=== PATIENT | female | born 1945 | race African-American/Black ===

== ENCOUNTER 2020-12-01 21:45 | Observation (INO) ==
[2020-12-01] MEDS ORDERED: SODIUM CHLORIDE 0.9% 500 ML IV STA (22:16)
[2020-12-01 23:07] LABS: Basophils % 0.2 % (0.0-0.8); Eosinophils % 0.5 % (0.00-10.9); Hemoglobin 10.5 GM/DL (12.0-16.0); Immature Granulocytes % 0.5 %; Immature Granulocytes Absolute 0.03 #; Lymphocytes # 1.3 10*3/uL (1.4-4.0); Lymphocytes % 20.1 % (21.3-54.2); Mean Corpuscular HGB Conc 30.9 GM/DL (32-36); Mean Corpuscular Volume 96.6 FL (87-102); Monocytes % 9.6 % (1.7-12.7); Neutrophils % 69.1 % (38.7-73.9); Platelet Count 99 T/CUMM (130-400); Red Blood Count 3.52 MC/CUMM (3.8-5.5); White Blood Count 6.4 T/CUMM (4-12)
[2020-12-01 23:23] LABS: INR 1.1; PT Patient Result 12.4 SECS (9.8-11.9)
[2020-12-01 23:29] LABS: Bilirubin,Urine Negative (Negative); Blood, Urine Negative (Negative); Glucose,Urine (UA) 150 mg/dL (Negative); Ketones,Urine Negative (Negative); Mucus,Urine Occasional /LPF (Occasional); Nitrite,Urine Negative (Negative); Protein,Urine 30 MG/DL; RBC,Urine 4 /HPF (0-4); Squamous Epithelial Cell,Urine Occasional /HPF (0-10); Urine Appearance CLEAR (Clear); Urine Color Yellow (Yellow); Urine Specific Gravity 1.015 (1.001-1.035); Urine Urobilinogen < 2.0 EU/DL (0.2-1.0); WBC,Urine 4 /HPF (0-6)
[2020-12-01 23:32] LABS: Alanine Aminotransferase 13 U/L (13-56); Albumin 3.6 G/DL (3.4-5.0); Alkaline Phosphatase 75 U/L (45-117); Aspartate Amino Transferase 69 U/L (0-37); Bilirubin,Total < 0.39 MG/DL (0.2-1.0); Blood Urea Nitrogen 19 MG/DL (7-18); Calcium 9.6 MG/DL (8.5-10.1); Carbon Dioxide 25 MMOL/L (21-32); Estimated Glom Filtration Rate 56 ML/MIN; Glucose 180 MG/DL (74-106); Potassium 4.6 MMOL/L (3.5-5.1); Sodium 136 MMOL/L (136-145); Total Protein 7.7 G/DL (6.4-8.2)
[2020-12-02] MEDS ORDERED: ASPIRIN 325 MG TABLET PO STA (00:04)
[2020-12-02] MEDS ORDERED: DEXTROSE 50% 25 GM/50 ML VIAL IV PRN (00:05)
[2020-12-02] MEDS ORDERED: ACETAMINOPHEN 325 MG TABLET PO PRN (00:05)
[2020-12-02] MEDS ORDERED: ONDANSETRON 4 MG/2 ML VIAL IV PRN (00:05)
[2020-12-02] MEDS ORDERED: GLUCAGON 1 MG VIAL IM PRN (00:05)
[2020-12-02] MEDS ORDERED: SODIUM CHLORIDE 0.9% 1,000 ML IV SCH (00:30)
[2020-12-02] MEDS ORDERED: ENOXAPARIN 40 MG/0.4 ML SYRINGE SUBCUT SCH (07:00)
[2020-12-02 07:05] LABS: Basophils % 0.3 % (0.0-0.8); Eosinophils # 0.1 10*3/uL (0.0-0.87); Eosinophils % 0.8 % (0.00-10.9); Hematocrit 32.2 VOL% (35.7-47.0); Hemoglobin 9.7 GM/DL (12.0-16.0); Immature Granulocytes % 0.3 %; Immature Granulocytes Absolute 0.02 #; Lymphocytes # 1.6 10*3/uL (1.4-4.0); Lymphocytes % 26.3 % (21.3-54.2); Mean Corpuscular HGB Conc 30.1 GM/DL (32-36); Mean Corpuscular Volume 96.1 FL (87-102); Mean Platelet Volume 14.4 FL (9.6-12.0); Monocytes % 10.7 % (1.7-12.7); Neutrophils % 61.6 % (38.7-73.9); Platelet Count 100 T/CUMM (130-400); Red Blood Count 3.35 MC/CUMM (3.8-5.5); Red Cell Distribution Width 15.9 % (9.3-17.3)
[2020-12-02 07:21] LABS: Hypochromasia 1+; Microcytosis 1+
[2020-12-02 07:24] LABS: Albumin 3.3 G/DL (3.4-5.0); Bilirubin,Total 0.9 MG/DL (0.2-1.0); Calcium 9.3 MG/DL (8.5-10.1); Osmolality,Calculated 283.3 MOS/KG (273-304); Potassium 4.9 MMOL/L (3.5-5.1); Total Protein 6.9 G/DL (6.4-8.2)
[2020-12-02 07:26] LABS: Risk Ratio 1.97; VLDL CHOLESTEROL 10.4 MG/DL
[2020-12-02] MEDS: INSULIN REGULAR 100 UNIT/ML SUBCUT SCH ×2 (08:57→12:32)
[2020-12-02] MEDS ORDERED: FERROUS SULFATE 325 MG TABLET PO SCH (09:00)
[2020-12-02] MEDS ORDERED: SACUBITRIL/VALSARTAN 49-51 MG TABLET PO SCH (09:00)
[2020-12-02] MEDS ORDERED: carvediloL 12.5 MG TABLET PO SCH (09:00)
[2020-12-02] MEDS ORDERED: GABAPENTIN 300 MG CAPSULE PO SCH (09:00)
[2020-12-02] MEDS ORDERED: MAGNESIUM CHLORIDE 64 MG TABLET PO SCH (09:00)
[2020-12-02] MEDS ORDERED: ATORVASTATIN 10 MG TABLET PO SCH (09:00)
[2020-12-02] MEDS ORDERED: allopurinoL 100 MG TABLET PO SCH (09:00)
[2020-12-02] MEDS ORDERED: ASPIRIN 325 MG TABLET PO SCH (09:00)
[2020-12-02 11:38] VITALS: BP 143/73
== END 2020-12-02 14:27 | disposition home or self-care (01) ==
LOC: N.ED 21:45 → N.EDINP 21:45 → N.5E 12-02 01:16
PROVIDERS: ADMIT Emergency Medicine; ATTEND Emergency Medicine

== ENCOUNTER 2021-12-31 10:59 | Inpatient (IN) ==
[2021-12-31 13:21] LABS: Basophils % 0.2 % (0.0-0.8); Hematocrit 35.4 VOL% (35.7-47.0); Hemoglobin 11.4 GM/DL (12.0-16.0); Immature Granulocytes % 0.6 %; Immature Granulocytes Absolute 0.07 #; Lymphocytes # 1.1 10*3/uL (1.4-4.0); Lymphocytes % 9.3 % (21.3-54.2); Mean Corpuscular HGB Conc 32.2 GM/DL (32-36); Mean Corpuscular Volume 92.2 FL (87-102); Mean Platelet Volume 14.3 FL (9.6-12.0); Monocytes # 1.6 10*3/uL (0.11-0.8); Monocytes % 13.6 % (1.7-12.7); Neutrophils % 76.3 % (38.7-73.9); Platelet Count 90 T/CUMM (130-400); Red Blood Count 3.84 MC/CUMM (3.8-5.5); Red Cell Distribution Width 14.7 % (9.3-17.3)
[2021-12-31 13:30] LABS: INR 1.1; PT Patient Result 12.2 SECS (10.5-12.0); Partial Thromboplastin Time 28.5 SECS (23.8-32.1)
[2021-12-31 13:32] LABS: Ammonia < 10 UMOL/L (11-32)
[2021-12-31 13:41] LABS: Platelet Estimate Decreased
[2021-12-31 14:10] LABS: Bilirubin,Total 1.2 MG/DL (0.20-1.00); Calcium 8.9 MG/DL (8.5-10.1); Osmolality,Calculated 275.8 MOS/KG (273-304); Potassium 4.6 MMOL/L (3.5-5.1); Total Protein 7.4 G/DL (6.4-8.2)
[2021-12-31 14:55] LABS: Granular Casts,Urine 3 /LPF (0-1); Mucus,Urine Occasional /LPF (Occasional); RBC,Urine 2 /HPF (0-4); Squamous Epithelial Cell,Urine Occasional /HPF (0-10)
[2021-12-31 14:56] LABS: Urine Appearance Clear (Clear); Urine Color Yellow (Yellow)
[2021-12-31 14:57] LABS: Bilirubin,Urine Small mg/dL (Negative); Blood, Urine Moderate mg/dL (Negative); Glucose,Urine (UA) Negative (Negative); Ketones,Urine Trace mg/dL (Negative); Nitrite,Urine Negative (Negative); Protein,Urine >=300 mg/dL (Negative); Urine Specific Gravity >= 1.030 (1.001-1.035)
[2021-12-31] MEDS ORDERED: SODIUM CHLORIDE 0.9% 1,000 ML IV STA (15:01)
[2021-12-31] MEDS ORDERED: GLUCAGON 1 MG VIAL IM PRN (15:18)
[2021-12-31 15:34] LABS: Lactic Acid 1.9 MMOL/L (0.4-2.0)
[2021-12-31] MEDS ORDERED: BISACODYL 5 MG TABLET PO PRN (15:38)
[2021-12-31] MEDS ORDERED: ONDANSETRON 4 MG/2 ML VIAL IV PRN (15:38)
[2021-12-31] MEDS ORDERED: DEXTROSE 10% 250 ML BAG IV PRN (15:54)
[2021-12-31 17:07] LABS: Hepatitis B Surface Ag Quant < 0.10 Index; Hepatitis B Surface Ag Result Non-Reactive (NonReactive); Hepatitis C Virus Ab Quant 0.05 Index; Hepatitis C Virus Ab Result Non-Reactive (NonReactive)
[2021-12-31] MEDS: SODIUM CHLORIDE 0.9% 1,000 ML IV SCH (18:04)
[2021-12-31] MEDS: INSULIN LISPRO 100 UNIT/ML SUBCUT SCH ×2 (18:04→20:57)
[2021-12-31] MEDS: MAGNESIUM CHLORIDE 64 MG TABLET PO SCH (20:56)
[2021-12-31] MEDS: ISOSORBIDE DINITRATE 20 MG TABLET PO SCH (20:57)
[2021-12-31] MEDS: carvediloL 12.5 MG TABLET PO SCH (20:57)
[2021-12-31] MEDS: APIXABAN 5 MG TABLET PO SCH (20:57)
[2021-12-31] MEDS: hydrALAZINE 25 MG TABLET PO SCH (20:57)
[2021-12-31] MEDS ORDERED: ACETAMINOPHEN 325 MG TABLET PO PRN (21:14)
[2021-12-31] MEDS: ACETAMINOPHEN 650 MG SUPP RECTAL PRN (21:15)
[2021-12-31] MEDS ORDERED: cefTRIAXone 1,000 MG in SODIUM CHLORIDE 0.9% 100 ML IV ONE (22:00)
[2021-12-31 23:35] LABS: Mucus,Urine Occasional /LPF (Occasional); RBC,Urine 2 /HPF (0-4); Squamous Epithelial Cell,Urine Occasional /HPF (0-10); Urine Appearance Slightly Cloudy (Clear); Urine Color Dark Yellow (Yellow)
[2021-12-31 23:36] LABS: Bilirubin,Urine Small mg/dL (Negative); Blood, Urine Small mg/dL (Negative); Glucose,Urine (UA) Negative (Negative); Ketones,Urine Negative (Negative); Nitrite,Urine Negative (Negative); Protein,Urine >=300 mg/dL (Negative); Urine Specific Gravity > 1.030 (1.001-1.035); Urine pH 5.5 (4.5-8.0)
[2022-01-01] MEDS: PIPERACILLIN/TAZOBACTAM 3,375 MG in SODIUM CHLORIDE 0.9% 100 ML IV SCH ×3 (00:49→18:38)
[2022-01-01] MEDS: SODIUM CHLORIDE 0.9% 1,000 ML IV SCH ×2 (00:53→17:57)
[2022-01-01] MEDS: VANCOMYCIN INJ 1,250 MG in SODIUM CHLORIDE 0.9% 250 ML IV SCH (04:52)
[2022-01-01 04:58] LABS: Basophils % 0.2 % (0.0-0.8); Hematocrit 33.5 VOL% (35.7-47.0); Hemoglobin 10.9 GM/DL (12.0-16.0); Immature Granulocytes % 0.3 %; Immature Granulocytes Absolute 0.03 #; Lymphocytes # 0.9 10*3/uL (1.4-4.0); Lymphocytes % 10.5 % (21.3-54.2); Mean Corpuscular HGB Conc 32.5 GM/DL (32-36); Mean Corpuscular Volume 92.5 FL (87-102); Monocytes # 1.3 10*3/uL (0.11-0.8); Platelet Count 75 T/CUMM (130-400); Red Blood Count 3.62 MC/CUMM (3.8-5.5); Red Cell Distribution Width 14.6 % (9.3-17.3); White Blood Count 8.6 T/CUMM (4-12)
[2022-01-01 05:19] LABS: Albumin 2.6 G/DL (3.4-5.0); Bilirubin,Total 1.3 MG/DL (0.20-1.00); Calcium 8.8 MG/DL (8.5-10.1); Osmolality,Calculated 274.7 MOS/KG (273-304); Potassium 4.3 MMOL/L (3.5-5.1); Risk Ratio 2.61; Total Protein 7.9 G/DL (6.4-8.2); VLDL Cholesterol 17.6 MG/DL
[2022-01-01] MEDS: APIXABAN 5 MG TABLET PO SCH ×2 (09:27→21:15)
[2022-01-01] MEDS: FERROUS SULFATE 325 MG TABLET PO SCH (09:27)
[2022-01-01] MEDS: ISOSORBIDE DINITRATE 20 MG TABLET PO SCH ×2 (09:28→21:15)
[2022-01-01] MEDS: PANTOPRAZOLE 40 MG TABLET PO SCH (09:28)
[2022-01-01] MEDS: carvediloL 12.5 MG TABLET PO SCH ×2 (09:28→21:15)
[2022-01-01] MEDS: INSULIN LISPRO 100 UNIT/ML SUBCUT SCH ×4 (09:47→22:08)
[2022-01-01] MEDS: hydrALAZINE 25 MG TABLET PO SCH ×2 (09:47→21:16)
[2022-01-01] MEDS: MAGNESIUM CHLORIDE 64 MG TABLET PO SCH ×2 (10:23→21:15)
[2022-01-01] MEDS: ACETAMINOPHEN 650 MG SUPP RECTAL PRN (15:55)
[2022-01-02] MEDS: SODIUM CHLORIDE 0.9% 1,000 ML IV SCH ×3 (00:05→20:26)
[2022-01-02] MEDS: PIPERACILLIN/TAZOBACTAM 3,375 MG in SODIUM CHLORIDE 0.9% 100 ML IV SCH ×3 (00:33→18:13)
[2022-01-02] MEDS: VANCOMYCIN INJ 1,250 MG in SODIUM CHLORIDE 0.9% 250 ML IV SCH (04:33)
[2022-01-02] MEDS: INSULIN LISPRO 100 UNIT/ML SUBCUT SCH ×4 (08:28→21:17)
[2022-01-02] MEDS: carvediloL 12.5 MG TABLET PO SCH ×2 (10:34→21:16)
[2022-01-02] MEDS: hydrALAZINE 25 MG TABLET PO SCH ×2 (10:34→21:16)
[2022-01-02] MEDS: ISOSORBIDE DINITRATE 20 MG TABLET PO SCH ×2 (10:35→21:16)
[2022-01-02] MEDS: MAGNESIUM CHLORIDE 64 MG TABLET PO SCH ×2 (10:35→21:16)
[2022-01-02] MEDS: APIXABAN 5 MG TABLET PO SCH ×2 (10:35→21:16)
[2022-01-02] MEDS: PANTOPRAZOLE 40 MG TABLET PO SCH (10:35)
[2022-01-02] MEDS: MEMANTINE 5 MG TABLET PO SCH (21:17)
[2022-01-03] MEDS: PIPERACILLIN/TAZOBACTAM 3,375 MG in SODIUM CHLORIDE 0.9% 100 ML IV SCH ×3 (00:18→17:12)
[2022-01-03 03:42] LABS: Basophils % 0.1 % (0.0-0.8); Eosinophils # 0.1 10*3/uL (0.0-0.87); Eosinophils % 1.1 % (0.00-10.9); Hematocrit 25.8 VOL% (35.7-47.0); Hemoglobin 8.2 GM/DL (12.0-16.0); Immature Granulocytes % 0.7 %; Immature Granulocytes Absolute 0.06 #; Lymphocytes # 1.1 10*3/uL (1.4-4.0); Lymphocytes % 12.7 % (21.3-54.2); Mean Corpuscular HGB Conc 31.8 GM/DL (32-36); Mean Corpuscular Volume 91.2 FL (87-102); Monocytes # 0.9 10*3/uL (0.11-0.8); Neutrophils % 74.4 % (38.7-73.9); Platelet Count 75 T/CUMM (130-400); Red Blood Count 2.83 MC/CUMM (3.8-5.5); Red Cell Distribution Width 14.6 % (9.3-17.3); White Blood Count 8.5 T/CUMM (4-12)
[2022-01-03 03:56] LABS: Calcium 8.9 MG/DL (8.5-10.1); Osmolality,Calculated 266.8 MOS/KG (273-304); Potassium 3.7 MMOL/L (3.5-5.1)
[2022-01-03 04:01] LABS: Platelet Estimate Decreased
[2022-01-03] MEDS: VANCOMYCIN INJ 1,250 MG in SODIUM CHLORIDE 0.9% 250 ML IV SCH (04:22)
[2022-01-03] MEDS: INSULIN LISPRO 100 UNIT/ML SUBCUT SCH ×4 (09:11→21:44)
[2022-01-03] MEDS: MEMANTINE 5 MG TABLET PO SCH ×2 (09:11→21:43)
[2022-01-03] MEDS: PANTOPRAZOLE 40 MG TABLET PO SCH (09:11)
[2022-01-03] MEDS: FERROUS SULFATE 325 MG TABLET PO SCH (09:11)
[2022-01-03] MEDS: MAGNESIUM CHLORIDE 64 MG TABLET PO SCH ×2 (09:11→21:43)
[2022-01-03] MEDS: APIXABAN 5 MG TABLET PO SCH ×2 (09:11→21:43)
[2022-01-03] MEDS: ISOSORBIDE DINITRATE 20 MG TABLET PO SCH ×2 (09:11→21:43)
[2022-01-03] MEDS: hydrALAZINE 25 MG TABLET PO SCH ×2 (09:11→21:43)
[2022-01-03] MEDS: carvediloL 12.5 MG TABLET PO SCH ×2 (09:11→21:43)
[2022-01-03] MEDS: SODIUM CHLORIDE 0.9% 1,000 ML IV SCH (21:15)
[2022-01-04] MEDS: PIPERACILLIN/TAZOBACTAM 3,375 MG in SODIUM CHLORIDE 0.9% 100 ML IV SCH ×3 (00:19→18:09)
[2022-01-04 04:13] LABS: Basophils % 0.3 % (0.0-0.8); Eosinophils # 0.2 10*3/uL (0.0-0.87); Eosinophils % 1.7 % (0.00-10.9); Hematocrit 25.6 VOL% (35.7-47.0); Hemoglobin 8.2 GM/DL (12.0-16.0); Immature Granulocytes % 0.8 %; Immature Granulocytes Absolute 0.08 #; Lymphocytes % 10.1 % (21.3-54.2); Mean Corpuscular Volume 91.1 FL (87-102); Monocytes # 1.2 10*3/uL (0.11-0.8); Monocytes % 12.1 % (1.7-12.7); Platelet Count 86 T/CUMM (130-400); Red Blood Count 2.81 MC/CUMM (3.8-5.5); Red Cell Distribution Width 14.6 % (9.3-17.3); White Blood Count 9.7 T/CUMM (4-12)
[2022-01-04 04:37] LABS: Platelet Estimate Decreased
[2022-01-04 04:44] LABS: Calcium 8.7 MG/DL (8.5-10.1); Osmolality,Calculated 270.5 MOS/KG (273-304); Potassium 3.7 MMOL/L (3.5-5.1)
[2022-01-04] MEDS: VANCOMYCIN INJ 1,250 MG in SODIUM CHLORIDE 0.9% 250 ML IV SCH (05:30)
[2022-01-04] MEDS: INSULIN LISPRO 100 UNIT/ML SUBCUT SCH ×4 (08:59→20:59)
[2022-01-04] MEDS: ISOSORBIDE DINITRATE 20 MG TABLET PO SCH ×2 (09:09→20:57)
[2022-01-04] MEDS: hydrALAZINE 25 MG TABLET PO SCH ×2 (09:09→20:57)
[2022-01-04] MEDS: MEMANTINE 5 MG TABLET PO SCH ×2 (09:09→20:57)
[2022-01-04] MEDS: carvediloL 12.5 MG TABLET PO SCH ×2 (09:09→20:57)
[2022-01-04] MEDS: APIXABAN 5 MG TABLET PO SCH ×2 (09:09→20:57)
[2022-01-04] MEDS: MAGNESIUM CHLORIDE 64 MG TABLET PO SCH ×2 (09:09→20:57)
[2022-01-04] MEDS: PANTOPRAZOLE 40 MG TABLET PO SCH (09:10)
[2022-01-04] MEDS: ACETAMINOPHEN 325 MG TABLET PO PRN (10:30)
[2022-01-04] MEDS: SODIUM CHLORIDE 0.9% 1,000 ML IV SCH (16:02)
[2022-01-05] MEDS: PIPERACILLIN/TAZOBACTAM 3,375 MG in SODIUM CHLORIDE 0.9% 100 ML IV SCH ×2 (00:47→09:41)
[2022-01-05] MEDS ORDERED: FLUTICASONE 50 MCG NASAL SPRAY 16 GM BOTTLE BOTH NARES SCH (05:00)
[2022-01-05] MEDS: ACETAMINOPHEN 325 MG TABLET PO PRN (05:13)
[2022-01-05] MEDS: VANCOMYCIN INJ 1,250 MG in SODIUM CHLORIDE 0.9% 250 ML IV SCH (05:15)
[2022-01-05 05:35] LABS: Calcium 9.5 MG/DL (8.5-10.1); Osmolality,Calculated 274.2 MOS/KG (273-304); Potassium 4.1 MMOL/L (3.5-5.1)
[2022-01-05 06:30] LABS: Basophils % 0.4 % (0.0-0.8); Eosinophils # 0.2 10*3/uL (0.0-0.87); Eosinophils % 2.7 % (0.00-10.9); Hematocrit 26.8 VOL% (35.7-47.0); Hemoglobin 8.7 GM/DL (12.0-16.0); Immature Granulocytes % 0.9 %; Immature Granulocytes Absolute 0.08 #; Lymphocytes % 11.5 % (21.3-54.2); Mean Corpuscular HGB Conc 32.5 GM/DL (32-36); Mean Corpuscular Volume 90.5 FL (87-102); Mean Platelet Volume 14.2 FL (9.6-12.0); Monocytes % 11.7 % (1.7-12.7); Neutrophils % 72.8 % (38.7-73.9); Red Blood Count 2.96 MC/CUMM (3.8-5.5); Red Cell Distribution Width 14.8 % (9.3-17.3); White Blood Count 8.9 T/CUMM (4-12)
[2022-01-05 06:39] LABS: Platelet Count 149 T/CUMM (130-400)
[2022-01-05] MEDS: INSULIN LISPRO 100 UNIT/ML SUBCUT SCH ×2 (07:50→12:03)
[2022-01-05] MEDS: FERROUS SULFATE 325 MG TABLET PO SCH (09:35)
[2022-01-05] MEDS: hydrALAZINE 25 MG TABLET PO SCH (09:35)
[2022-01-05] MEDS: ISOSORBIDE DINITRATE 20 MG TABLET PO SCH (09:35)
[2022-01-05] MEDS: MAGNESIUM CHLORIDE 64 MG TABLET PO SCH (09:35)
[2022-01-05] MEDS: APIXABAN 5 MG TABLET PO SCH (09:35)
[2022-01-05] MEDS: carvediloL 12.5 MG TABLET PO SCH (09:35)
[2022-01-05] MEDS: PANTOPRAZOLE 40 MG TABLET PO SCH (09:35)
[2022-01-05] MEDS: MEMANTINE 5 MG TABLET PO SCH (09:35)
[2022-01-05 12:04] VITALS: BP 100/45
== END 2022-01-05 13:09 | DRG 884 ==
LOC: N.ED 10:59 → SUATTDRO 15:40 → N.EDINP 15:40 → N.TELEN 16:07
PROVIDERS: ADMIT Internal Medicine; ATTEND Internal Medicine Geriatric Medicine